=== PATIENT | male | born 1935 | race African-American/Black ===

== ENCOUNTER 2018-03-24 13:17 | Inpatient (IN) | payer MEDICARE, MEDICAID ==
[~2018-03-24] VITALS: Ht 172.7 cm; Wt 70.5 kg
[~2018-03-24 13:17] MED LIST: AMLO10TA80 PO; ATENOLOL; BENA10TA10 PO; CLON0.1T PO; COR12 PO; FINA5TAB3 PO; HYDR-2510 PO; LABE200T28 PO; LEVO500T2 PO; NIFE90TA43 PO; P20 PO; PRED10TA PO; PRED5TAB48 PO; SIMV20TA2 PO; TAMS-11 PO; lasix PO
[2018-03-24] MEDS ORDERED: SODIUM CHLORIDE 0.9% 500 ML IV ONE (14:18)
[2018-03-24 15:08] LABS: BASOPHILS % 0.6 % (0.0-2.0); EOSINOPHILS % 0.7 % (0.0-5.0); HEMATOCRIT. 38.3 % (42.0-52.0); HEMOGLOBIN. 12.5 g/dL (14.0-18.0); LYMPHOCYTES % 18.6 % (20.0-50.0); MEAN CORPUSCULAR HEMOGLOBIN 28.2 pg (28.0-32.0); MEAN CORPUSCULAR VOLUME 86.5 fL (80.0-94.0); MEAN PLATELET VOLUME 10.6 fl (7.4-10.4); MONOCYTES % 14.5 % (2.0-8.0); NEUTROPHILS % 65.6 % (40.0-76.0); PLATELET 89 x1000/uL (130-400); RED BLOOD CELL COUNT 4.42 mill/uL (4.7-6.1)
[2018-03-24 15:10] LABS: CHLORIDE 105 mEq/L (98-107)
[2018-03-24 15:20] LABS: CREATINE KINASE 291 IU/L (39-308)
[2018-03-24 15:23] LABS: CREATINE KINASE MB FRACTION 1.1 ng/mL (0.5-3.6)
[2018-03-24 15:24] LABS: INR 1.1; PARTIAL THROMBOPLASTIN TIME 23.1 sec (23.4-31.0); PROTHROMBIN TIME 10.8 sec (9.1-11.1)
[2018-03-24] MEDS ORDERED: MAGNESIUM/ALUMINUM HYDROXIDE/SIMETHICONE 30ML UDC PO PRN (17:30)
[2018-03-24] MEDS ORDERED: IPRATROPIUM/ALBUTEROL 0.5-3(2.5)MG/3ML NEB INH PRN (17:30)
[2018-03-24] MEDS ORDERED: ENOXAPARIN 40MG/0.4ML SYR SUBCUT SCH (17:30)
[2018-03-24] MEDS ORDERED: NA PHOS,M-B/NA PHOS,DI-BA ENEMA 118ML PR PRN (17:30)
[2018-03-24] MEDS ORDERED: CLONIDINE 0.1MG TABLET PO PRN (17:30)
[2018-03-24] MEDS ORDERED: ACETAMINOPHEN 325MG TABLET PO PRN (17:30)
[2018-03-24] MEDS ORDERED: DOCUSATE SODIUM 100MG CAPSULE PO PRN (17:30)
[2018-03-24] MEDS ORDERED: GUAIFENESIN 200MG/10ML SUGAR FREE UDC PO PRN (17:30)
[2018-03-24] MEDS ORDERED: DIPHENHYDRAMINE 50MG/ML VIAL IV PRN (17:30)
[2018-03-24] MEDS ORDERED: HYDROMORPHONE HCL/PF 2MG/ML CPJ IV PRN (17:30)
[2018-03-24] MEDS ORDERED: LORAZEPAM 2MG/ML CPJ IV PRN (17:30)
[2018-03-24] MEDS ORDERED: ONDANSETRON HCL 4MG/2ML INJ IV PRN (17:30)
[2018-03-24] MEDS: HYDROCODONE/ACETAMINOPHEN 5/325MG TABLET PO PRN (19:19)
[2018-03-24 21:15] VITALS: BP 172/78
[2018-03-24 21:30] VITALS: BP 172/78
[2018-03-25] VITALS (7 sets, daily range): BP systolic 103–155; BP diastolic 53–74
[2018-03-25 06:15] LABS: CHLORIDE 107 mEq/L (98-107)
[2018-03-25 07:09] LABS: HEMATOCRIT. 37.4 % (42.0-52.0); HEMOGLOBIN. 12.3 g/dL (14.0-18.0); MEAN CORPUSCULAR HEMOGLOBIN 28.5 pg (28.0-32.0); MEAN CORPUSCULAR VOLUME 86.2 fL (80.0-94.0); MEAN PLATELET VOLUME 11.1 fl (7.4-10.4); PLATELET 81 x1000/uL (130-400); RED BLOOD CELL COUNT 4.34 mill/uL (4.7-6.1); RED CELL DISTRIBUTION WIDTH 14.9 % (11.6-14.6)
[2018-03-25 07:34] LABS: CHLORIDE 106 mEq/L (98-107)
[2018-03-25 07:58] LABS: HDL CHOLESTEROL 68 mg/dL (40-59)
[2018-03-25 07:59] LABS: LDL CHOLESTEROL 122 mg/dL (5-100)
[2018-03-25 08:00] LABS: T4 FREE 1.16 ng/dL (0.76-1.46)
[2018-03-25] MEDS: ASPIRIN 81MG EC TABLET PO SCH (09:50)
[2018-03-25] MEDS: FUROSEMIDE 40MG/4ML VIAL IV SCH (09:50)
[2018-03-25] MEDS: SODIUM CHLORIDE 0.9% 1,000 ML IV SCH (09:53)
[2018-03-25] MEDS: HYDROCODONE/ACETAMINOPHEN 5/325MG TABLET PO PRN (13:49)
[2018-03-25 14:07] LABS: PLATELET ESTIMATE DECREASED
[2018-03-25 16:05] LABS: CREATINE KINASE 210 IU/L (39-308)
[2018-03-25 16:06] LABS: CREATINE KINASE MB FRACTION < 1.0 ng/mL (0.5-3.6)
[2018-03-26] VITALS: BP 136/64
[2018-03-26 00:06] LABS: CREATINE KINASE 175 IU/L (39-308)
[2018-03-26 00:07] LABS: CREATINE KINASE MB FRACTION < 1.0 ng/mL (0.5-3.6)
[2018-03-26] MEDS: SODIUM CHLORIDE 0.9% 1,000 ML IV SCH (00:31)
[2018-03-26 04:00] VITALS: BP 145/59
[2018-03-26 07:31] LABS: CREATINE KINASE 175 IU/L (39-308)
[2018-03-26 07:32] LABS: CREATINE KINASE MB FRACTION < 1.0 ng/mL (0.5-3.6)
[2018-03-26 08:00] VITALS: BP_SYST 131; BP_SYST 164; BP_SYST 170; BP_DIAS 54; BP_DIAS 74; BP_DIAS 79
[2018-03-26] MEDS: FUROSEMIDE 40MG/4ML VIAL IV SCH (09:28)
[2018-03-26] MEDS: HYDROCODONE/ACETAMINOPHEN 5/325MG TABLET PO PRN (09:29)
[2018-03-26] MEDS: ASPIRIN 81MG EC TABLET PO SCH (09:29)
[2018-03-26 12:00] VITALS: BP_SYST 136; BP_SYST 144; BP_SYST 163; BP_DIAS 63; BP_DIAS 69; BP_DIAS 70
[2018-03-26 13:42] VITALS: BP 136/70
== END 2018-03-26 15:57 | disposition home or self-care (01) | DRG 73 ==
LOC: ER 13:22 → 8WST 16:43 → EDBEDREQTM 16:53 → EDBEDREQ 16:53 → CANRESERV 17:07 → ENRESERV 17:07 → 8WST 21:33
PROVIDERS: ADMIT Internal Medicine; ATTEND Internal Medicine
DX: G90.8 Other disorders of autonomic nervous system (principal); G93.41 Metabolic encephalopathy; R55 Syncope and collapse; I11.0 Hypertensive heart disease with heart failure; J44.9 Chronic obstructive pulmonary disease, unspecified; I25.10 Atherosclerotic heart disease of native coronary artery without angina pectoris; I50.9 Heart failure, unspecified; N28.9 Disorder of kidney and ureter, unspecified; E78.5 Hyperlipidemia, unspecified; Z87.891 Personal history of nicotine dependence; Z95.0 Presence of cardiac pacemaker
CPT/HCPCS: 36415; 71045; 78582; 80048; 80061; 82550; 82553; 83036; 83735; 83880; 84439; 84443; 84484; 85379; 93005; 93306; 93880; 96361; 96374; 99285; A9558; J1940; J7030; J7040